=== PATIENT | female | born 1995 | race Caucasian/White ===

== ENCOUNTER 2021-11-11 09:33 | Inpatient (IN) | payer MEDICARE, MEDICAID ==
[~2021-11-11] VITALS: Ht 167.6 cm; Wt 74.8 kg
[2021-11-11 10:29] LABS: BASOPHILS % (AUTO) 0.3 % (0.0-2.0); EOSINOPHILS % (AUTO) 0.1 % (1.0-6.0); HEMATOCRIT 37.5 % (36-46); HEMOGLOBIN 12.9 g/dL (12.0-16.0); LYMPHOCYTES # (AUTO) 1.3 K/uL (1.0-4.8); LYMPHOCYTES % (AUTO) 19.2 % (22.0-44.0); MEAN CORPUSCULAR HEMOGLOBIN 30.2 pg (26.0-34.0); MEAN CORPUSCULAR HGB CONC 34.4 G/dL (31.0-37.0); MEAN CORPUSCULAR VOLUME 88 fL (80-100); MONOCYTES # (AUTO) 0.5 K/uL (0.1-1.0); MONOCYTES % (AUTO) 7.7 % (2.0-9.0); NEUTROPHILS # (AUTO) 5.1 K/uL (1.8-7.7); NEUTROPHILS % (AUTO) 72.7 % (40.0-70.0); PLATELET COUNT (AUTO) 264 K/uL (150-450); RED BLOOD CELL COUNT(AUTO) 4.27 MIL/uL (4.00-5.20); RED CELL DISTRIBUTION WIDTH 13.5 % (11.5-14.5)
[2021-11-11 11:01] LABS: ANION GAP 7 mmol/L (8-16); CALCIUM, TOTAL 9.2 mg/dL (8.8-10.5); CARBON DIOXIDE 26 mmol/L (22-29); CHLORIDE 103 mmol/L (98-107); CREATININE 0.77 mg/dL (0.60-1.30); GLUCOSE,RANDOM 118 mg/dL (70-110); POTASSIUM 3.5 mmol/L (3.5-5.1); SODIUM SERUM 136 mmol/L (136-145); UREA NITROGEN, BLOOD 10 mg/dL (7-18)
[2021-11-11 11:04] LABS: GLOMERULAR FILTR. RATE CALC > 60 mL/min (>60)
[2021-11-11 11:07] LABS: ALANINE AMINOTRANSFERASE 23 U/L (12-78); ALBUMIN 4.1 g/dL (3.4-5.0); ALKALINE PHOSPHATASE 54 U/L (46-116); ASPARTATE AMINOTRANSFERASE 17 U/L (15-37); BILIRUBIN,TOTAL 0.4 mg/dL (0.1-1.0); TOTAL PROTEIN, SERUM 7.5 g/dL (6.4-8.2)
[2021-11-11 11:48] LABS: APPEARANCE,URINE CLEAR (CLEAR); BILIRUBIN,URINE NEGATIVE (NEGATIVE); GLUCOSE, URINE (UA) NEGATIVE (NEGATIVE); LEUKOCYTE ESTERASE ,URINE SMALL (NEGATIVE); NITRATE,URINE NEGATIVE (NEGATIVE); OCCULT BLOOD,URINE NEGATIVE (NEGATIVE); PROTEIN,URINE NEGATIVE (NEGATIVE); SPECIFIC GRAVITIY, URINE 1.011 (1.003-1.030); UROBILINOGEN,URINE <=1.0 mg/dL (<=1.0)
[2021-11-11 11:57] LABS: BACTERIA,URINE None Seen /HPF (None Seen); RBC,URINE None Seen /HPF (0-2)
[2021-11-11 11:58] LABS: SQUAMOUS EPITHELIAL CELL,UR Few /LPF (None Seen); YEAST,URINE None Seen /HPF (None Seen)
[2021-11-11 12:35] LABS: AMPHET/METH SCREEN,URINE NEGATIVE (NEGATIVE); BARBITURATE SCREEN, URINE NEGATIVE (NEGATIVE); BENZODIAZEPINES SCREEN,URINE NEGATIVE (NEGATIVE); CANNABINOID SCREEN,URINE POSITIVE (NEGATIVE); COCAINE SCREEN,URINE NEGATIVE (NEGATIVE); METHADONE SCREEN, URINE NEGATIVE (NEGATIVE); OPIATE SCREEN,URINE NEGATIVE (NEGATIVE); PHENCYCLIDINE SCREEN,URINE NEGATIVE (NEGATIVE)
[2021-11-11 12:40] LABS: COVID AG,FIA SOURCE NASAL SWAB
[2021-11-11 14:03] VITALS: BP 149/94
[2021-11-11 16:28] VITALS: BP 150/90
[2021-11-11] MEDS: LORazepam 2 MG TABLET PO PRN (17:30)
[2021-11-11] MEDS: ZOLPIDEM TARTRATE 10 MG TABLET PO PRN (20:48)
[2021-11-11] MEDS ORDERED: ONDANSETRON HCL 4 MG TABLET PO PRN (22:45)
[2021-11-12 00:55] VITALS: BP 163/98
[2021-11-12] MEDS: LORazepam 2 MG TABLET PO PRN ×2 (01:02→16:45)
[2021-11-12] MEDS ORDERED: MAG HYDROX/AL HYDROX/SIMETH ES 30 ML SUSPENSION UDCUP PO PRN (07:45)
[2021-11-12] MEDS ORDERED: CloNIDine HCL 0.1 MG TABLET PO PRN (07:45)
[2021-11-12] MEDS ORDERED: PETROLATUM,WHITE 28 GM JELLY TP PRN (07:45)
[2021-11-12] MEDS ORDERED: GuaiFENesin/D-METHORPHAN [SUGAR-FREE] 200-20MG/10 ML SYRUP UDCUP PO PRN (07:45)
[2021-11-12] MEDS ORDERED: IBUPROFEN 400 MG TABLET PO PRN (07:45)
[2021-11-12] MEDS ORDERED: MAGNESIUM HYDROXIDE SUSPENSION 30 ML UDCUP PO PRN (07:45)
[2021-11-12] MEDS ORDERED: ACETAMINOPHEN 325 MG TABLET PO PRN (07:45)
[2021-11-12] MEDS ORDERED: NICOTINE 14 MG/24 HOUR PATCH TD PRN (07:45)
[2021-11-12] MEDS ORDERED: LOPERAMIDE HCL 2 MG CAPSULE PO PRN (07:45)
[2021-11-12] MEDS ORDERED: ALBUTEROL SULFATE HFA 90 MCG/PUFF 8 GM INHALER IH PRN (07:45)
[2021-11-12 08:06] LABS: H. PYLORI ANTIBODY IGG 0.16 (0.00-0.79)
[2021-11-12 09:05] VITALS: BP 148/83
[2021-11-12] MEDS: FINASTERIDE 5 MG TABLET PO SCH (12:31)
[2021-11-12] MEDS: ESTRADIOL 1 MG TABLET PO SCH (12:34)
[2021-11-12 16:07] VITALS: BP 143/81
[2021-11-12] MEDS: PROGESTERONE, MICRONIZED 100 MG CAPSULE PO SCH (20:30)
[2021-11-12] MEDS: OLANZapine 2.5 MG TABLET PO SCH (20:30)
[2021-11-12] MEDS: PRAZOSIN HCL 5 MG CAPSULE PO SCH (20:30)
[2021-11-12] MEDS: ZOLPIDEM TARTRATE 10 MG TABLET PO PRN (21:02)
[2021-11-13] VITALS (8 sets, daily range): BP systolic 145–156; BP diastolic 74–116
[2021-11-13] MEDS: LORazepam 2 MG TABLET PO PRN ×4 (02:42→23:54)
[2021-11-13] MEDS: ESTRADIOL 1 MG TABLET PO SCH (09:19)
[2021-11-13] MEDS: FINASTERIDE 5 MG TABLET PO SCH (09:19)
[2021-11-13] MEDS: ONDANSETRON HCL 4 MG TABLET PO PRN ×2 (09:20→17:30)
[2021-11-13] MEDS: DOCUSATE SODIUM 100 MG CAPSULE PO PRN ×2 (11:56→20:28)
[2021-11-13] MEDS: PRAZOSIN HCL 5 MG CAPSULE PO SCH (20:14)
[2021-11-13] MEDS: OLANZapine 2.5 MG TABLET PO SCH (20:14)
[2021-11-13] MEDS: PROGESTERONE, MICRONIZED 100 MG CAPSULE PO SCH (20:17)
[2021-11-13] MEDS: ZOLPIDEM TARTRATE 10 MG TABLET PO PRN (20:34)
[2021-11-14] VITALS: BP 127/76
[2021-11-14] MEDS: FINASTERIDE 5 MG TABLET PO SCH (08:24)
[2021-11-14] MEDS: ESTRADIOL 1 MG TABLET PO SCH (08:24)
[2021-11-14] MEDS: LORazepam 2 MG TABLET PO PRN ×4 (08:24→20:47)
[2021-11-14 10:17] VITALS: BP 136/83
[2021-11-14] MEDS: ONDANSETRON HCL 4 MG TABLET PO PRN ×2 (10:54→18:57)
[2021-11-14 13:07] LABS: H. PYLORI ANTIBODY IGM <9.0 units (0.0-8.9)
[2021-11-14 16:10] VITALS: BP 148/98
[2021-11-14] MEDS: PRAZOSIN HCL 5 MG CAPSULE PO SCH (20:46)
[2021-11-14] MEDS: PROGESTERONE, MICRONIZED 100 MG CAPSULE PO SCH (20:46)
[2021-11-14] MEDS: OLANZapine 2.5 MG TABLET PO SCH (20:47)
[2021-11-14] MEDS: ZOLPIDEM TARTRATE 10 MG TABLET PO PRN (21:01)
[2021-11-14 21:06] LABS: H. PYLORI ANTIBODY IGA <9.0 units (0.0-8.9)
[2021-11-15] MEDS: FINASTERIDE 5 MG TABLET PO SCH (08:20)
[2021-11-15] MEDS: ESTRADIOL 1 MG TABLET PO SCH (08:20)
[2021-11-15 08:29] VITALS: BP 140/93
[2021-11-15] MEDS: LORazepam 2 MG TABLET PO PRN ×2 (13:01→20:29)
[2021-11-15 16:27] VITALS: BP 132/86
[2021-11-15] MEDS: PROGESTERONE, MICRONIZED 100 MG CAPSULE PO SCH (20:28)
[2021-11-15] MEDS: PRAZOSIN HCL 5 MG CAPSULE PO SCH (20:29)
[2021-11-15] MEDS: OLANZapine 2.5 MG TABLET PO SCH (20:29)
[2021-11-15 20:31] VITALS: BP 130/82
[2021-11-15] MEDS: ZOLPIDEM TARTRATE 10 MG TABLET PO PRN (20:52)
[2021-11-16] MEDS: LORazepam 2 MG TABLET PO PRN ×3 (02:14→19:44)
[2021-11-16] MEDS: ONDANSETRON HCL 4 MG TABLET PO PRN (02:26)
[2021-11-16 08:18] VITALS: BP 145/86
[2021-11-16] MEDS: ESTRADIOL 1 MG TABLET PO SCH (08:47)
[2021-11-16] MEDS: FINASTERIDE 5 MG TABLET PO SCH (08:48)
[2021-11-16] MEDS: HALOPERIDOL 5 MG TABLET PO PRN (08:50)
[2021-11-16 16:12] VITALS: BP 150/94
[2021-11-16] MEDS: PROGESTERONE, MICRONIZED 100 MG CAPSULE PO SCH (20:08)
[2021-11-16] MEDS: OLANZapine 2.5 MG TABLET PO SCH (20:08)
[2021-11-16] MEDS: PRAZOSIN HCL 5 MG CAPSULE PO SCH (20:08)
[2021-11-16] MEDS: MELATONIN 3 MG TABLET PO SCH (20:08)
[2021-11-16 20:55] VITALS: BP 141/89
[2021-11-16] MEDS: ZOLPIDEM TARTRATE 10 MG TABLET PO PRN (21:48)
[2021-11-17 08:19] VITALS: BP 144/87
[2021-11-17] MEDS: ESTRADIOL 1 MG TABLET PO SCH (09:04)
[2021-11-17] MEDS: LORazepam 2 MG TABLET PO PRN ×2 (09:04→15:32)
[2021-11-17] MEDS: HALOPERIDOL 5 MG TABLET PO PRN (09:04)
[2021-11-17] MEDS: FINASTERIDE 5 MG TABLET PO SCH (09:04)
[2021-11-17 16:35] VITALS: BP 143/87
[2021-11-17 20:31] VITALS: BP 145/88
[2021-11-17] MEDS: PRAZOSIN HCL 5 MG CAPSULE PO SCH (20:57)
[2021-11-17] MEDS: OLANZapine 2.5 MG TABLET PO SCH (20:57)
[2021-11-17] MEDS: MELATONIN 3 MG TABLET PO SCH (20:58)
[2021-11-17] MEDS: PROGESTERONE, MICRONIZED 100 MG CAPSULE PO SCH (20:58)
[2021-11-17] MEDS: ZOLPIDEM TARTRATE 10 MG TABLET PO PRN (21:34)
[2021-11-18] MEDS: LORazepam 2 MG TABLET PO PRN ×3 (04:04→19:24)
[2021-11-18 08:30] VITALS: BP 126/85
[2021-11-18] MEDS: FINASTERIDE 5 MG TABLET PO SCH (08:49)
[2021-11-18] MEDS: ESTRADIOL 1 MG TABLET PO SCH (08:50)
[2021-11-18] MEDS: HALOPERIDOL 5 MG TABLET PO PRN (13:13)
[2021-11-18 16:38] VITALS: BP 130/86
[2021-11-18 20:24] VITALS: BP 127/84
[2021-11-18] MEDS: PROGESTERONE, MICRONIZED 100 MG CAPSULE PO SCH (21:00)
[2021-11-18] MEDS: OLANZapine 2.5 MG TABLET PO SCH (21:35)
[2021-11-18] MEDS: PRAZOSIN HCL 5 MG CAPSULE PO SCH (21:35)
[2021-11-18] MEDS: MELATONIN 3 MG TABLET PO SCH (21:35)
[2021-11-19] MEDS: LORazepam 2 MG TABLET PO PRN ×2 (07:23→19:26)
[2021-11-19] MEDS: FINASTERIDE 5 MG TABLET PO SCH (08:22)
[2021-11-19] MEDS: ESTRADIOL 1 MG TABLET PO SCH (08:23)
[2021-11-19 08:53] VITALS: BP 150/88
[2021-11-19 10:55] LABS: COVID AG,FIA SOURCE NASOPHARYNGEAL
[2021-11-19 16:18] VITALS: BP 139/73
[2021-11-19] MEDS: PRAZOSIN HCL 5 MG CAPSULE PO SCH (20:12)
[2021-11-19] MEDS: MELATONIN 3 MG TABLET PO SCH (20:12)
[2021-11-19] MEDS: OLANZapine 2.5 MG TABLET PO SCH (20:12)
[2021-11-19] MEDS: PROGESTERONE, MICRONIZED 100 MG CAPSULE PO SCH (20:13)
[2021-11-19] MEDS: ZOLPIDEM TARTRATE 10 MG TABLET PO PRN (21:07)
[2021-11-20] MEDS: LORazepam 2 MG TABLET PO PRN ×4 (02:56→18:50)
[2021-11-20 04:22] VITALS: BP 134/74
[2021-11-20 08:11] VITALS: BP 138/75
[2021-11-20] MEDS: FINASTERIDE 5 MG TABLET PO SCH (08:13)
[2021-11-20] MEDS: ESTRADIOL 1 MG TABLET PO SCH (08:14)
[2021-11-20 16:02] VITALS: BP 134/85
[2021-11-20] MEDS: OLANZapine 2.5 MG TABLET PO SCH (20:08)
[2021-11-20] MEDS: PRAZOSIN HCL 5 MG CAPSULE PO SCH (20:08)
[2021-11-20] MEDS: MELATONIN 3 MG TABLET PO SCH (20:08)
[2021-11-20] MEDS: PROGESTERONE, MICRONIZED 100 MG CAPSULE PO SCH (20:11)
[2021-11-20] MEDS: ZOLPIDEM TARTRATE 10 MG TABLET PO PRN (21:18)
[2021-11-21] MEDS: HALOPERIDOL 5 MG TABLET PO PRN (07:32)
[2021-11-21] MEDS: FINASTERIDE 5 MG TABLET PO SCH (07:32)
[2021-11-21] MEDS: ESTRADIOL 1 MG TABLET PO SCH (07:32)
[2021-11-21] MEDS: LORazepam 2 MG TABLET PO PRN ×2 (07:32→15:54)
[2021-11-21 08:23] VITALS: BP 114/75
[2021-11-21 16:15] VITALS: BP 133/83
[2021-11-21] MEDS: OLANZapine 2.5 MG TABLET PO SCH (20:17)
[2021-11-21] MEDS: PROGESTERONE, MICRONIZED 100 MG CAPSULE PO SCH (20:17)
[2021-11-21] MEDS: PRAZOSIN HCL 5 MG CAPSULE PO SCH (20:17)
[2021-11-21] MEDS: MELATONIN 3 MG TABLET PO SCH (20:18)
[2021-11-21] MEDS: ZOLPIDEM TARTRATE 10 MG TABLET PO PRN (20:56)
[2021-11-22] MEDS: LORazepam 2 MG TABLET PO PRN ×2 (01:50→09:21)
[2021-11-22] MEDS: HALOPERIDOL 5 MG TABLET PO PRN ×2 (01:50→09:21)
[2021-11-22 08:24] VITALS: BP 128/77
[2021-11-22] MEDS: ESTRADIOL 1 MG TABLET PO SCH (09:06)
[2021-11-22] MEDS: FINASTERIDE 5 MG TABLET PO SCH (09:06)
[2021-11-22] MEDS ORDERED: OLAN2.5T29 PO (11:46)
[2021-11-22] MEDS ORDERED: PRAZ5 PO (11:46)
[2021-11-22] MEDS ORDERED: MELA3TAB89 PO (11:46)
== END 2021-11-22 14:40 | disposition home or self-care (01) | DRG 885 ==
LOC: EMS 09:36 → 3EI 12:54 → 3EX 19:59 → 3EC 11-13 15:45
PROVIDERS: ADMIT Psychiatry & Neurology Child & Adolescent Psychiatry; ATTEND Psychiatry & Neurology Child & Adolescent Psychiatry
DX: F33.2 Major depressive disorder, recurrent severe without psychotic features (principal); R45.851 Suicidal ideations; F10.10 Alcohol abuse, uncomplicated; Z20.822 Contact with and (suspected) exposure to COVID-19; K21.9 Gastro-esophageal reflux disease without esophagitis; R03.0 Elevated blood-pressure reading, without diagnosis of hypertension; F19.10 Other psychoactive substance abuse, uncomplicated; F12.10 Cannabis abuse, uncomplicated; Z91.52 Personal history of nonsuicidal self-harm; Z79.899 Other long term (current) drug therapy
CPT/HCPCS: 70450; 80053; 81001; 85025; 86677; 99285; G0378; G0480; Q0162; Q9967

== ENCOUNTER 2022-01-08 05:24 | Inpatient (IN) | payer MEDICARE, MEDICAID ==
[~2022-01-08] VITALS: Ht 165.1 cm; Wt 75.3 kg
[~2022-01-08 05:24] MED LIST: MELA3TAB89 PO; OLAN2.5T29 PO; PRAZ5 PO
[2022-01-08 06:44] LABS: BASOPHILS % (AUTO) 0.7 % (0.0-2.0); EOSINOPHILS % (AUTO) 0.6 % (1.0-6.0); HEMATOCRIT 36.9 % (36-46); HEMOGLOBIN 12.5 g/dL (12.0-16.0); LYMPHOCYTES # (AUTO) 2.6 K/uL (1.0-4.8); LYMPHOCYTES % (AUTO) 35.2 % (22.0-44.0); MEAN CORPUSCULAR VOLUME 88 fL (80-100); MONOCYTES # (AUTO) 0.6 K/uL (0.1-1.0); MONOCYTES % (AUTO) 7.5 % (2.0-9.0); NEUTROPHILS # (AUTO) 4.2 K/uL (1.8-7.7); PLATELET COUNT (AUTO) 263 K/uL (150-450); RED BLOOD CELL COUNT(AUTO) 4.18 MIL/uL (4.00-5.20); RED CELL DISTRIBUTION WIDTH 13.4 % (11.5-14.5)
[2022-01-08 06:52] LABS: ANION GAP 8 mmol/L (8-16); CARBON DIOXIDE 27 mmol/L (22-29); CHLORIDE 102 mmol/L (98-107); CREATININE 0.81 mg/dL (0.60-1.30); GLOMERULAR FILTR. RATE CALC > 60 mL/min (>60); GLUCOSE,RANDOM 106 mg/dL (70-110); POTASSIUM 3.5 mmol/L (3.5-5.1); SODIUM SERUM 137 mmol/L (136-145); UREA NITROGEN, BLOOD 16 mg/dL (7-18)
[2022-01-08 06:58] LABS: ALANINE AMINOTRANSFERASE 16 U/L (12-78); ALBUMIN 4.1 g/dL (3.4-5.0); ALKALINE PHOSPHATASE 57 U/L (46-116); ASPARTATE AMINOTRANSFERASE 17 U/L (15-37); BILIRUBIN,TOTAL 0.3 mg/dL (0.1-1.0); TOTAL PROTEIN, SERUM 7.4 g/dL (6.4-8.2)
[2022-01-08] MEDS ORDERED: LORazepam 2 MG TABLET PO PRN (07:15)
[2022-01-08] MEDS ORDERED: OLANZapine 5 MG RAPDIS TABLET PO PRN (07:15)
[2022-01-08] MEDS ORDERED: ZOLPIDEM TARTRATE 10 MG TABLET PO PRN (07:15)
[2022-01-08 09:29] LABS: COVID AG,FIA SOURCE NASAL SWAB
[2022-01-08 10:15] VITALS: BP 141/88
[2022-01-08 12:00] LABS: APPEARANCE,URINE CLEAR (CLEAR); BILIRUBIN,URINE NEGATIVE (NEGATIVE); GLUCOSE, URINE (UA) NEGATIVE (NEGATIVE); KETONES,URINE NEGATIVE (NEGATIVE); LEUKOCYTE ESTERASE ,URINE NEGATIVE (NEGATIVE); NITRATE,URINE NEGATIVE (NEGATIVE); OCCULT BLOOD,URINE NEGATIVE (NEGATIVE); PH,URINE 5.5 (5.0-8.0); PROTEIN,URINE TRACE mg/dL (NEGATIVE); SPECIFIC GRAVITIY, URINE 1.031 (1.003-1.030); UROBILINOGEN,URINE <=1.0 mg/dL (<=1.0)
[2022-01-08 12:05] LABS: AMPHET/METH SCREEN,URINE NEGATIVE (NEGATIVE); BARBITURATE SCREEN, URINE NEGATIVE (NEGATIVE); BENZODIAZEPINES SCREEN,URINE NEGATIVE (NEGATIVE); CANNABINOID SCREEN,URINE NEGATIVE (NEGATIVE); COCAINE SCREEN,URINE NEGATIVE (NEGATIVE); METHADONE SCREEN, URINE NEGATIVE (NEGATIVE); OPIATE SCREEN,URINE NEGATIVE (NEGATIVE)
[2022-01-08 12:07] LABS: PHENCYCLIDINE SCREEN,URINE NEGATIVE (NEGATIVE)
[2022-01-08 12:22] LABS: BACTERIA,URINE None Seen /HPF (None Seen); RBC,URINE None Seen /HPF (0-2); SQUAMOUS EPITHELIAL CELL,UR Few /LPF (None Seen); WBC,URINE None Seen /HPF (0-5)
[2022-01-08 16:43] VITALS: BP 151/89
[2022-01-08] MEDS ORDERED: TEMAZEPAM 15 MG CAPSULE PO PRN (16:45)
[2022-01-08] MEDS ORDERED: ChlorproMAZINE HCL 100 MG TABLET PO PRN (16:45)
[2022-01-08] MEDS: HydrOXYzine PAMOATE 25 MG CAPSULE PO SCH (17:28)
[2022-01-08] MEDS: LORazepam 1 MG TABLET PO PRN (19:46)
[2022-01-08] MEDS: PROGESTERONE, MICRONIZED 100 MG CAPSULE PO SCH (20:24)
[2022-01-08] MEDS: MAGNESIUM CHLORIDE 64 MG DR TABLET PO SCH (20:43)
[2022-01-08] MEDS: PRAZOSIN HCL 5 MG CAPSULE PO SCH (20:43)
[2022-01-09] MEDS: FINASTERIDE 5 MG TABLET PO SCH (08:48)
[2022-01-09] MEDS: PRAZOSIN HCL 1 MG CAPSULE PO SCH (08:48)
[2022-01-09] MEDS: HydrOXYzine PAMOATE 25 MG CAPSULE PO SCH ×3 (08:48→21:23)
[2022-01-09] MEDS: ESTRADIOL 1 MG TABLET PO SCH (08:49)
[2022-01-09] MEDS ORDERED: OMEGA-3/DHA/EPA/FISH OIL 1,000 MG CAPSULE PO SCH (09:00)
[2022-01-09 09:17] VITALS: BP 137/89
[2022-01-09] MEDS ORDERED: QUEtiapine FUMARATE 100 MG TABLET PO PRN (09:45)
[2022-01-09] MEDS ORDERED: ZOLPIDEM TARTRATE 10 MG TABLET PO PRN (09:45)
[2022-01-09] MEDS ORDERED: LOPERAMIDE HCL 2 MG CAPSULE PO PRN (09:45)
[2022-01-09] MEDS ORDERED: TUBERCULIN, PURIFIED PROTEIN DERIVATIVE 5 TU/0.1 ML SYRINGE ID ONE (09:45)
[2022-01-09] MEDS ORDERED: MAGNESIUM HYDROXIDE SUSPENSION 30 ML UDCUP PO PRN (09:45)
[2022-01-09] MEDS ORDERED: ACETAMINOPHEN 325 MG TABLET PO PRN (09:45)
[2022-01-09] MEDS ORDERED: MAG HYDROX/AL HYDROX/SIMETH ES 30 ML SUSPENSION UDCUP PO PRN (09:45)
[2022-01-09] MEDS ORDERED: GuaiFENesin/D-METHORPHAN [SUGAR-FREE] 200-20MG/10 ML SYRUP UDCUP PO PRN (09:45)
[2022-01-09] MEDS ORDERED: HydrOXYzine PAMOATE 50 MG CAPSULE PO PRN (09:45)
[2022-01-09] MEDS ORDERED: PROMETHAZINE HCL 25 MG TABLET PO PRN (09:45)
[2022-01-09] MEDS ORDERED: OLANZapine 5 MG RAPDIS TABLET PO PRN (10:00)
[2022-01-09] MEDS ORDERED: ChlorproMAZINE HCL 50 MG TABLET PO PRN (14:45)
[2022-01-09 16:03] VITALS: BP 153/89
[2022-01-09] MEDS: THIAMINE 100 MG TABLET PO SCH (16:09)
[2022-01-09] MEDS: LORazepam 1 MG TABLET PO PRN (18:12)
[2022-01-09] MEDS: PROGESTERONE, MICRONIZED 100 MG CAPSULE PO SCH (20:30)
[2022-01-09] MEDS ORDERED: OLANZapine 5 MG RAPDIS TABLET PO SCH ×2 (21:00)
[2022-01-09] MEDS ORDERED: ESZOPICLONE 3 MG TABLET PO SCH (21:00)
[2022-01-09] MEDS: ChlorproMAZINE HCL 100 MG TABLET PO SCH (21:22)
[2022-01-09] MEDS: PRAZOSIN HCL 5 MG CAPSULE PO SCH (21:22)
[2022-01-09] MEDS: MELATONIN 5 MG TABLET PO SCH (21:23)
[2022-01-09] MEDS: MAGNESIUM CHLORIDE 64 MG DR TABLET PO SCH (21:23)
[2022-01-09] MEDS: ESZOPICLONE 3 MG TABLET PO PRN (22:30)
[2022-01-10 08:06] LABS: HEMOGLOBIN A1C 5.6 % (3.8-5.6)
[2022-01-10 08:14] LABS: CHOL/HDL RATIO 3.5 (3.9-5.7); FREE T4 (FREE THYROXINE) 1.3 ng/dL (0.76-1.46); THYROID STIMULATING HORMONE 1.3 uIU/mL (0.36-3.74)
[2022-01-10] MEDS: FOLIC ACID 1 MG TABLET PO SCH (08:28)
[2022-01-10] MEDS: ESTRADIOL 1 MG TABLET PO SCH (08:28)
[2022-01-10] MEDS: OMEGA-3/DHA/EPA/FISH OIL 1,000 MG CAPSULE PO SCH (08:28)
[2022-01-10] MEDS: FINASTERIDE 5 MG TABLET PO SCH (08:29)
[2022-01-10] MEDS: THIAMINE 100 MG TABLET PO SCH ×2 (08:29→16:16)
[2022-01-10] MEDS: NALTREXONE HCL 50 MG TABLET PO SCH (08:29)
[2022-01-10] MEDS: PRAZOSIN HCL 1 MG CAPSULE PO SCH (08:29)
[2022-01-10] MEDS: MULTIVITAMINS WITH MINERALS, THERAPEUTIC TABLET PO SCH (08:29)
[2022-01-10] MEDS: LORazepam 1 MG TABLET PO PRN (09:14)
[2022-01-10 09:52] VITALS: BP 144/82
[2022-01-10 17:03] VITALS: BP 135/76
[2022-01-10] MEDS ORDERED: CHLO100T42 PO (17:11)
[2022-01-10] MEDS ORDERED: CHLO25TA70 PO (17:11)
[2022-01-10] MEDS: PRAZOSIN HCL 5 MG CAPSULE PO SCH (20:23)
[2022-01-10] MEDS: ChlorproMAZINE HCL 100 MG TABLET PO SCH (20:23)
[2022-01-10] MEDS: MELATONIN 5 MG TABLET PO SCH (20:23)
[2022-01-10] MEDS: HydrOXYzine PAMOATE 25 MG CAPSULE PO SCH (20:23)
[2022-01-10] MEDS: PROGESTERONE, MICRONIZED 100 MG CAPSULE PO SCH (20:24)
[2022-01-10] MEDS: MAGNESIUM CHLORIDE 64 MG DR TABLET PO SCH (20:24)
[2022-01-10] MEDS: ESZOPICLONE 3 MG TABLET PO PRN (21:18)
[2022-01-11 05:45] VITALS: BP 149/98
[2022-01-11] MEDS: LORazepam 1 MG TABLET PO PRN (05:49)
[2022-01-11 05:54] VITALS: BP 155/91
[2022-01-11 08:00] VITALS: BP 164/93
[2022-01-11] MEDS: THIAMINE 100 MG TABLET PO SCH (08:36)
[2022-01-11] MEDS: ChlorproMAZINE HCL 25 MG TABLET PO SCH ×3 (08:36→12:30)
[2022-01-11] MEDS: OMEGA-3/DHA/EPA/FISH OIL 1,000 MG CAPSULE PO SCH (08:36)
[2022-01-11] MEDS: NALTREXONE HCL 50 MG TABLET PO SCH (08:36)
[2022-01-11] MEDS: MULTIVITAMINS WITH MINERALS, THERAPEUTIC TABLET PO SCH (08:37)
[2022-01-11] MEDS: FOLIC ACID 1 MG TABLET PO SCH (08:37)
[2022-01-11] MEDS: ESTRADIOL 1 MG TABLET PO SCH (08:37)
[2022-01-11] MEDS: FINASTERIDE 5 MG TABLET PO SCH (08:38)
[2022-01-11] MEDS: PRAZOSIN HCL 1 MG CAPSULE PO SCH (08:39)
[2022-01-11] MEDS ORDERED: ESTR-95 PO (10:10)
[2022-01-11] MEDS ORDERED: MAGN64TA7 PO (10:10)
[2022-01-11] MEDS ORDERED: PRAZ1 PO ×3 (10:10→15:37)
[2022-01-11] MEDS ORDERED: FINA-27 PO ×2 (10:10→15:37)
[2022-01-11] MEDS ORDERED: PRAZ5 PO (10:10)
[2022-01-11] MEDS ORDERED: PROG100C24 PO ×2 (10:10→15:37)
== END 2022-01-11 14:40 | disposition home or self-care (01) | DRG 885 ==
LOC: EMS 05:29 → 3EX 10:11
PROVIDERS: ADMIT Psychiatry & Neurology Psychiatry; ATTEND Psychiatry & Neurology Psychiatry
DX: F33.2 Major depressive disorder, recurrent severe without psychotic features (principal); F43.10 Post-traumatic stress disorder, unspecified; K21.9 Gastro-esophageal reflux disease without esophagitis; F90.9 Attention-deficit hyperactivity disorder, unspecified type; Z20.822 Contact with and (suspected) exposure to COVID-19; S41.112A Laceration without foreign body of left upper arm, initial encounter; X78.1XXA Intentional self-harm by knife, initial encounter; F12.90 Cannabis use, unspecified, uncomplicated; Y93.89 Activity, other specified; Y92.098 Other place in other non-institutional residence as the place of occurrence of the external cause; Y99.8 Other external cause status; Z65.3 Problems related to other legal circumstances; Z55.9 Problems related to education and literacy, unspecified; Z59.9 Problem related to housing and economic circumstances, unspecified; Z63.9 Problem related to primary support group, unspecified; Z79.890 Hormone replacement therapy; Z91.19 Patient's noncompliance with other medical treatment and regimen; Z79.899 Other long term (current) drug therapy
CPT/HCPCS: 80053; 80061; 81001; 83036; 84439; 84443; 85025; 86592; 99285; G0378; G0480; Q9967

== ENCOUNTER 2022-03-18 09:37 | Inpatient (IN) | payer MEDICARE, MEDICAID ==
[~2022-03-18] VITALS: Ht 165.1 cm; Wt 73.5 kg
[~2022-03-18 09:37] MED LIST changes: +CHLO100T42 PO; +CHLO25TA70 PO; +ESTR-95 PO; +FINA-27 PO; +MAGN64TA7 PO; -MELA3TAB89 PO; -OLAN2.5T29 PO; +PRAZ1 PO; +PROG100C24 PO
[2022-03-18 10:28] LABS: COVID AG,FIA SOURCE NASOPHARYNGEAL
[2022-03-18 10:30] LABS: BASOPHILS % (AUTO) 0.9 % (0.0-2.0); EOSINOPHILS % (AUTO) 1.3 % (1.0-6.0); HEMATOCRIT 39.3 % (36-46); HEMOGLOBIN 13.4 g/dL (12.0-16.0); LYMPHOCYTES # (AUTO) 2.1 K/uL (1.0-4.8); LYMPHOCYTES % (AUTO) 43.1 % (22.0-44.0); MEAN CORPUSCULAR HEMOGLOBIN 30.4 pg (26.0-34.0); MEAN CORPUSCULAR HGB CONC 34.2 G/dL (31.0-37.0); MEAN CORPUSCULAR VOLUME 89 fL (80-100); MONOCYTES # (AUTO) 0.8 K/uL (0.1-1.0); MONOCYTES % (AUTO) 15.7 % (2.0-9.0); NEUTROPHILS # (AUTO) 1.9 K/uL (1.8-7.7); PLATELET COUNT (AUTO) 267 K/uL (150-450); RED BLOOD CELL COUNT(AUTO) 4.42 MIL/uL (4.00-5.20); RED CELL DISTRIBUTION WIDTH 13.6 % (11.5-14.5)
[2022-03-18 10:37] LABS: ANION GAP 5 mmol/L (8-16); CALCIUM, TOTAL 9.5 mg/dL (8.8-10.5); CARBON DIOXIDE 29 mmol/L (22-29); CHLORIDE 101 mmol/L (98-107); GLUCOSE,RANDOM 99 mg/dL (70-110); POTASSIUM 3.7 mmol/L (3.5-5.1); SODIUM SERUM 135 mmol/L (136-145); UREA NITROGEN, BLOOD 9 mg/dL (7-18)
[2022-03-18 10:40] LABS: GLOMERULAR FILTR. RATE CALC > 60 mL/min (>60)
[2022-03-18 10:48] LABS: ALANINE AMINOTRANSFERASE 19 U/L (12-78); ALBUMIN 4.3 g/dL (3.4-5.0); ALKALINE PHOSPHATASE 66 U/L (46-116); ASPARTATE AMINOTRANSFERASE 20 U/L (15-37); BILIRUBIN,TOTAL 0.3 mg/dL (0.1-1.0); HCG,QUANTITATIVE < 1 mIU/mL (0-6); TOTAL PROTEIN, SERUM 8.1 g/dL (6.4-8.2)
[2022-03-18] MEDS ORDERED: ZOLPIDEM TARTRATE 10 MG TABLET PO PRN (12:15)
[2022-03-18] MEDS ORDERED: OLANZapine 5 MG RAPDIS TABLET PO PRN (12:15)
[2022-03-18 15:59] LABS: AMPHET/METH SCREEN,URINE NEGATIVE (NEGATIVE); BARBITURATE SCREEN, URINE NEGATIVE (NEGATIVE); BENZODIAZEPINES SCREEN,URINE NEGATIVE (NEGATIVE); CANNABINOID SCREEN,URINE POSITIVE (NEGATIVE); COCAINE SCREEN,URINE NEGATIVE (NEGATIVE); METHADONE SCREEN, URINE NEGATIVE (NEGATIVE); OPIATE SCREEN,URINE NEGATIVE (NEGATIVE)
[2022-03-18 16:04] LABS: PHENCYCLIDINE SCREEN,URINE NEGATIVE (NEGATIVE)
[2022-03-18] MEDS: LORazepam 2 MG TABLET PO PRN ×2 (16:09→20:25)
[2022-03-18 16:32] VITALS: BP 130/94
[2022-03-18] MEDS: ChlorproMAZINE HCL 100 MG TABLET PO SCH (21:31)
[2022-03-18] MEDS: HydrOXYzine PAMOATE 25 MG CAPSULE PO SCH (21:31)
[2022-03-18] MEDS: MELATONIN 5 MG TABLET PO SCH (21:32)
[2022-03-19 02:08] VITALS: BP 122/78
[2022-03-19] MEDS: LORazepam 2 MG TABLET PO PRN (04:45)
[2022-03-19 08:30] VITALS: BP 115/69
[2022-03-19] MEDS ORDERED: HALOPERIDOL LACTATE 5 MG/ML VIAL IM ONE (08:30)
[2022-03-19] MEDS ORDERED: DiphenhydrAMINE HCL 50 MG/ML VIAL IM ONE (08:30)
[2022-03-19] MEDS ORDERED: LORazepam 2 MG/ML VIAL IM ONE (08:30)
[2022-03-19] MEDS ORDERED: DiphenhydrAMINE HCL 50 MG/ML VIAL ONE (08:31)
[2022-03-19] MEDS ORDERED: HALOPERIDOL LACTATE 5 MG/ML VIAL ONE ×2 (08:31→08:32)
[2022-03-19] MEDS: NALTREXONE HCL 50 MG TABLET PO SCH (09:00)
[2022-03-19] MEDS: ChlorproMAZINE HCL 25 MG TABLET PO SCH ×3 (09:40→19:43)
[2022-03-19] MEDS: OLANZapine 5 MG TABLET PO SCH (09:40)
[2022-03-19] MEDS: ESTRADIOL 1 MG TABLET PO SCH (19:50)
[2022-03-19 20:38] VITALS: BP 114/68
[2022-03-19] MEDS: ChlorproMAZINE HCL 100 MG TABLET PO SCH (21:22)
[2022-03-19] MEDS: PROGESTERONE, MICRONIZED 100 MG CAPSULE PO SCH (21:23)
[2022-03-19] MEDS: PRAZOSIN HCL 5 MG CAPSULE PO SCH (21:33)
[2022-03-19] MEDS: HydrOXYzine PAMOATE 25 MG CAPSULE PO SCH (21:33)
[2022-03-19] MEDS: MELATONIN 5 MG TABLET PO SCH (21:34)
[2022-03-20] MEDS: LORazepam 2 MG TABLET PO PRN ×2 (06:56→19:36)
[2022-03-20] MEDS: ESTRADIOL 1 MG TABLET PO SCH (08:39)
[2022-03-20] MEDS: OLANZapine 5 MG TABLET PO SCH ×3 (08:39→09:33)
[2022-03-20] MEDS: PRAZOSIN HCL 1 MG CAPSULE PO SCH (08:40)
[2022-03-20] MEDS: NALTREXONE HCL 50 MG TABLET PO SCH ×2 (08:40→09:00)
[2022-03-20] MEDS: ChlorproMAZINE HCL 25 MG TABLET PO SCH ×2 (09:00→09:02)
[2022-03-20 09:38] VITALS: BP 96/60
[2022-03-20] MEDS ORDERED: PROMETHAZINE HCL 25 MG TABLET PO PRN (09:45)
[2022-03-20] MEDS ORDERED: MAG HYDROX/AL HYDROX/SIMETH ES 30 ML SUSPENSION UDCUP PO PRN (09:45)
[2022-03-20] MEDS ORDERED: LOPERAMIDE HCL 2 MG CAPSULE PO PRN (09:45)
[2022-03-20] MEDS ORDERED: TUBERCULIN, PURIFIED PROTEIN DERIVATIVE 5 TU/0.1 ML SYRINGE ID ONE (09:45)
[2022-03-20] MEDS ORDERED: GuaiFENesin/D-METHORPHAN [SUGAR-FREE] 200-20MG/10 ML SYRUP UDCUP PO PRN (09:45)
[2022-03-20] MEDS ORDERED: ACETAMINOPHEN 325 MG TABLET PO PRN (09:45)
[2022-03-20] MEDS ORDERED: HydrOXYzine PAMOATE 50 MG CAPSULE PO PRN (09:45)
[2022-03-20] MEDS ORDERED: MAGNESIUM HYDROXIDE SUSPENSION 30 ML UDCUP PO PRN (09:45)
[2022-03-20] MEDS ORDERED: AMPHETAMINE/DEXTROAMPHETAMINE 10 MG TABLET PO SCH (12:00)
[2022-03-20] MEDS: THIAMINE 100 MG TABLET PO SCH (16:15)
[2022-03-20 20:30] VITALS: BP 117/81
[2022-03-20] MEDS ORDERED: ESZOPICLONE 3 MG TABLET PO SCH (21:00)
[2022-03-20] MEDS ORDERED: OLANZapine 7.5 MG TABLET PO SCH (21:00)
[2022-03-20] MEDS ORDERED: OLANZapine 5 MG TABLET PO SCH (21:00)
[2022-03-20] MEDS: PROGESTERONE, MICRONIZED 100 MG CAPSULE PO SCH (21:04)
[2022-03-20] MEDS: MELATONIN 5 MG TABLET PO SCH (21:07)
[2022-03-20] MEDS: HydrOXYzine PAMOATE 25 MG CAPSULE PO SCH (21:07)
[2022-03-20] MEDS: PRAZOSIN HCL 5 MG CAPSULE PO SCH (21:07)
[2022-03-20] MEDS ORDERED: MELA5TAB40 PO (21:27)
[2022-03-20] MEDS ORDERED: PRAZ5 PO (21:27)
[2022-03-20] MEDS ORDERED: PRAZ1 PO (21:27)
[2022-03-20] MEDS ORDERED: ESZO3 PO (21:27)
[2022-03-20] MEDS ORDERED: NALT50TA PO (21:27)
[2022-03-20] MEDS ORDERED: HYDR-4808 PO (21:27)
[2022-03-20] MEDS ORDERED: OLAN7.5T22 PO (21:27)
[2022-03-21] MEDS: AMPHETAMINE/DEXTROAMPHETAMINE 10 MG TABLET PO SCH ×2 (07:00→11:26)
[2022-03-21 07:29] LABS: HEMOGLOBIN A1C 5.3 % (3.8-5.6)
[2022-03-21 07:43] LABS: CHOL/HDL RATIO 4.5 (3.9-5.7); FREE T4 (FREE THYROXINE) 1.42 ng/dL (0.76-1.46); THYROID STIMULATING HORMONE 1.31 uIU/mL (0.36-3.74)
[2022-03-21 08:10] VITALS: BP 110/72
[2022-03-21] MEDS ORDERED: MULTIVITAMINS WITH MINERALS, THERAPEUTIC TABLET PO SCH (09:00)
[2022-03-21] MEDS ORDERED: FOLIC ACID 1 MG TABLET PO SCH (09:00)
[2022-03-21] MEDS: NALTREXONE HCL 50 MG TABLET PO SCH (09:18)
[2022-03-21] MEDS: ESTRADIOL 1 MG TABLET PO SCH (09:19)
[2022-03-21] MEDS: PRAZOSIN HCL 1 MG CAPSULE PO SCH (09:22)
[2022-03-21] MEDS: THIAMINE 100 MG TABLET PO SCH (09:23)
== END 2022-03-21 13:10 | disposition home or self-care (01) | DRG 885 ==
LOC: EMS 09:51 → B2X 12:37
PROVIDERS: ADMIT Psychiatry & Neurology Psychiatry; ATTEND Psychiatry & Neurology Psychiatry
DX: F31.30 Bipolar disorder, current episode depressed, mild or moderate severity, unspecified (principal); R45.851 Suicidal ideations; E87.1 Hypo-osmolality and hyponatremia; Z20.822 Contact with and (suspected) exposure to COVID-19; K21.9 Gastro-esophageal reflux disease without esophagitis; F90.9 Attention-deficit hyperactivity disorder, unspecified type; F60.3 Borderline personality disorder; F17.200 Nicotine dependence, unspecified, uncomplicated; F43.10 Post-traumatic stress disorder, unspecified; E78.5 Hyperlipidemia, unspecified; Z65.3 Problems related to other legal circumstances; Z59.9 Problem related to housing and economic circumstances, unspecified; Z63.8 Other specified problems related to primary support group; Z55.9 Problems related to education and literacy, unspecified; Z91.14 Patient's other noncompliance with medication regimen; Z91.199 Patient's noncompliance with other medical treatment and regimen due to unspecified reason; Z91.52 Personal history of nonsuicidal self-harm; Z79.899 Other long term (current) drug therapy
CPT/HCPCS: 80053; 80061; 83036; 84439; 84443; 84702; 85025; 86592; 99285; G0480; J1200; J1630; J2060; Q9967

== ENCOUNTER 2022-05-22 12:26 | Inpatient (IN) | payer MEDICARE, MEDICAID ==
[~2022-05-22] VITALS: Ht 165.1 cm; Wt 71.9 kg
[~2022-05-22 12:26] MED LIST changes: -CHLO100T42 PO; -CHLO25TA70 PO; -ESTR-95 PO; +ESZO3 PO; -FINA-27 PO; +HYDR-4808 PO; -MAGN64TA7 PO; +MELA5TAB40 PO; +NALT50TA PO; +OLAN7.5T22 PO; -PROG100C24 PO
[2022-05-22 13:28] LABS: BASOPHILS % (AUTO) 0.3 % (0.0-2.0); EOSINOPHILS % (AUTO) 0.6 % (1.0-6.0); HEMATOCRIT 35.5 % (36-46); HEMOGLOBIN 11.9 g/dL (12.0-16.0); LYMPHOCYTES # (AUTO) 1.6 K/uL (1.0-4.8); LYMPHOCYTES % (AUTO) 16.8 % (22.0-44.0); MEAN CORPUSCULAR HEMOGLOBIN 30.2 pg (26.0-34.0); MEAN CORPUSCULAR HGB CONC 33.6 G/dL (31.0-37.0); MEAN CORPUSCULAR VOLUME 90 fL (80-100); MONOCYTES # (AUTO) 0.5 K/uL (0.1-1.0); MONOCYTES % (AUTO) 5.3 % (2.0-9.0); NEUTROPHILS # (AUTO) 7.2 K/uL (1.8-7.7); PLATELET COUNT (AUTO) 273 K/uL (150-450); RED BLOOD CELL COUNT(AUTO) 3.96 MIL/uL (4.00-5.20); RED CELL DISTRIBUTION WIDTH 13.8 % (11.5-14.5)
[2022-05-22 13:44] LABS: ALANINE AMINOTRANSFERASE 16 U/L (12-78); ALBUMIN 4.1 g/dL (3.4-5.0); ALKALINE PHOSPHATASE 68 U/L (46-116); ANION GAP 6 mmol/L (8-16); ASPARTATE AMINOTRANSFERASE 21 U/L (15-37); BILIRUBIN,TOTAL 0.3 mg/dL (0.1-1.0); CALCIUM, TOTAL 8.6 mg/dL (8.8-10.5); CARBON DIOXIDE 27 mmol/L (22-29); CHLORIDE 103 mmol/L (98-107); GLUCOSE,RANDOM 99 mg/dL (70-110); POTASSIUM 3.7 mmol/L (3.5-5.1); SODIUM SERUM 136 mmol/L (136-145); TOTAL PROTEIN, SERUM 7.8 g/dL (6.4-8.2); UREA NITROGEN, BLOOD 6 mg/dL (7-18)
[2022-05-22 13:45] LABS: GLOMERULAR FILTR. RATE CALC > 60 mL/min (>60)
[2022-05-22] MEDS ORDERED: LORazepam 1 MG TABLET PO ONE ×2 (13:45→14:30)
[2022-05-22] MEDS ORDERED: OLANZapine 5 MG TABLET PO ONE (13:45)
[2022-05-22] MEDS ORDERED: HYDROGEN PEROXIDE 118 ML SOLUTION TP ONE (14:30)
[2022-05-22] MEDS ORDERED: BACITRACIN 0.9 GM PACKET OINTMENT TP ONE (14:30)
[2022-05-22] MEDS ORDERED: CEPHALEXIN MONOHYDRATE 500 MG CAPSULE PO ONE (14:30)
[2022-05-22] MEDS ORDERED: DiphenhydrAMINE HCL 25 MG CAPSULE PO ONE (14:30)
[2022-05-22] MEDS ORDERED: ZOLPIDEM TARTRATE 10 MG TABLET PO PRN (15:15)
[2022-05-22 17:02] LABS: COVID AG,FIA SOURCE NASOPHARYNGEAL
[2022-05-22] MEDS ORDERED: AmLODIPine BESYLATE 5 MG TABLET PO ONE (17:30)
[2022-05-22] MEDS ORDERED: GuaiFENesin/D-METHORPHAN [SUGAR-FREE] 200-20MG/10 ML SYRUP UDCUP PO PRN (21:45)
[2022-05-22] MEDS ORDERED: MAGNESIUM HYDROXIDE SUSPENSION 30 ML UDCUP PO PRN (21:45)
[2022-05-22] MEDS ORDERED: ACETAMINOPHEN 325 MG TABLET PO PRN (21:45)
[2022-05-22] MEDS ORDERED: LOPERAMIDE HCL 2 MG CAPSULE PO PRN (21:45)
[2022-05-22] MEDS ORDERED: MAG HYDROX/AL HYDROX/SIMETH ES 30 ML SUSPENSION UDCUP PO PRN (21:45)
[2022-05-22 23:30] VITALS: BP 130/85
[2022-05-22] MEDS: LORazepam 2 MG TABLET PO PRN (23:40)
[2022-05-23] MEDS: NALTREXONE HCL 50 MG TABLET PO SCH (10:03)
[2022-05-23] MEDS: THIAMINE 100 MG TABLET PO SCH ×2 (10:05→17:41)
[2022-05-23] MEDS: FOLIC ACID 1 MG TABLET PO SCH (10:05)
[2022-05-23] MEDS: OMEGA-3/DHA/EPA/FISH OIL 1,000 MG CAPSULE PO SCH (10:05)
[2022-05-23] MEDS: MULTIVITAMINS WITH MINERALS, THERAPEUTIC TABLET PO SCH (10:05)
[2022-05-23 10:11] VITALS: BP 144/86
[2022-05-23] MEDS: BACITRACIN 28 GM OINTMENT TP PRN (12:24)
[2022-05-23] MEDS: HydrOXYzine PAMOATE 50 MG CAPSULE PO PRN (12:24)
[2022-05-23] MEDS: LORazepam 2 MG TABLET PO PRN (12:24)
[2022-05-23] MEDS: PROMETHAZINE HCL 25 MG TABLET PO PRN (16:16)
[2022-05-23] MEDS: OLANZapine 5 MG RAPDIS TABLET PO PRN (17:41)
[2022-05-23] MEDS: HydrOXYzine PAMOATE 50 MG CAPSULE PO SCH (20:59)
[2022-05-23] MEDS: OLANZapine 10 MG RAPDIS TABLET PO SCH (21:00)
[2022-05-23] MEDS: MELATONIN 5 MG TABLET PO SCH (21:00)
[2022-05-23] MEDS: PRAZOSIN HCL 5 MG CAPSULE PO SCH (21:00)
[2022-05-23] MEDS ORDERED: OLANZapine 5 MG RAPDIS TABLET PO SCH (21:00)
[2022-05-23] MEDS ORDERED: ESZOPICLONE 2 MG TABLET PO SCH (21:00)
[2022-05-24 00:30] VITALS: BP 108/63
[2022-05-24] MEDS: LORazepam 2 MG TABLET PO PRN ×3 (02:40→18:07)
[2022-05-24 08:00] VITALS: BP 138/94
[2022-05-24] MEDS: NALTREXONE HCL 50 MG TABLET PO SCH (08:43)
[2022-05-24] MEDS: FOLIC ACID 1 MG TABLET PO SCH (08:43)
[2022-05-24] MEDS: MULTIVITAMINS WITH MINERALS, THERAPEUTIC TABLET PO SCH (08:43)
[2022-05-24] MEDS: BuPROPion HCL 75 MG TABLET PO SCH (08:43)
[2022-05-24] MEDS: OMEGA-3/DHA/EPA/FISH OIL 1,000 MG CAPSULE PO SCH (08:43)
[2022-05-24] MEDS: THIAMINE 100 MG TABLET PO SCH ×2 (08:44→16:01)
[2022-05-24] MEDS: PROMETHAZINE HCL 25 MG TABLET PO PRN (10:37)
[2022-05-24] MEDS: OLANZapine 5 MG RAPDIS TABLET PO PRN (14:14)
[2022-05-24] MEDS: HydrOXYzine PAMOATE 50 MG CAPSULE PO PRN (14:14)
[2022-05-24 18:03] VITALS: BP 159/91
[2022-05-24] MEDS: PRAZOSIN HCL 5 MG CAPSULE PO SCH (20:49)
[2022-05-24] MEDS: ESTRADIOL 1 MG TABLET PO SCH (20:49)
[2022-05-24] MEDS: FINASTERIDE 5 MG TABLET PO SCH (20:52)
[2022-05-24] MEDS: MELATONIN 5 MG TABLET PO SCH (20:52)
[2022-05-24] MEDS: PROGESTERONE, MICRONIZED 100 MG CAPSULE PO SCH (20:52)
[2022-05-24] MEDS: ESZOPICLONE 3 MG TABLET PO SCH (20:52)
[2022-05-24] MEDS: OLANZapine 10 MG RAPDIS TABLET PO SCH (20:56)
[2022-05-24] MEDS: HydrOXYzine PAMOATE 50 MG CAPSULE PO SCH (20:56)
[2022-05-25] MEDS: PROMETHAZINE HCL 25 MG TABLET PO PRN (06:31)
[2022-05-25] MEDS: FOLIC ACID 1 MG TABLET PO SCH (08:44)
[2022-05-25] MEDS: MULTIVITAMINS WITH MINERALS, THERAPEUTIC TABLET PO SCH (08:44)
[2022-05-25] MEDS: OMEGA-3/DHA/EPA/FISH OIL 1,000 MG CAPSULE PO SCH (08:44)
[2022-05-25] MEDS: NALTREXONE HCL 50 MG TABLET PO SCH (08:44)
[2022-05-25] MEDS: THIAMINE 100 MG TABLET PO SCH ×2 (08:45→16:41)
[2022-05-25] MEDS: BuPROPion HCL 75 MG TABLET PO SCH (08:45)
[2022-05-25] MEDS: LORazepam 2 MG TABLET PO PRN (08:54)
[2022-05-25 09:32] VITALS: BP 140/81
[2022-05-25 16:00] VITALS: BP 135/84
[2022-05-25] MEDS: ESTRADIOL 1 MG TABLET PO SCH (20:41)
[2022-05-25] MEDS: HydrOXYzine PAMOATE 50 MG CAPSULE PO SCH (20:41)
[2022-05-25] MEDS: OLANZapine 10 MG RAPDIS TABLET PO SCH (20:41)
[2022-05-25] MEDS: ESZOPICLONE 3 MG TABLET PO SCH (20:41)
[2022-05-25] MEDS: PRAZOSIN HCL 5 MG CAPSULE PO SCH (20:41)
[2022-05-25] MEDS: MELATONIN 5 MG TABLET PO SCH (20:42)
[2022-05-25] MEDS: FINASTERIDE 5 MG TABLET PO SCH (20:42)
[2022-05-25] MEDS: PROGESTERONE, MICRONIZED 100 MG CAPSULE PO SCH (20:42)
[2022-05-26] MEDS: LORazepam 2 MG TABLET PO PRN ×2 (03:21→11:45)
[2022-05-26 08:07] VITALS: BP 130/78
[2022-05-26] MEDS: MULTIVITAMINS WITH MINERALS, THERAPEUTIC TABLET PO SCH (08:52)
[2022-05-26] MEDS: THIAMINE 100 MG TABLET PO SCH ×2 (08:52→16:16)
[2022-05-26] MEDS: OMEGA-3/DHA/EPA/FISH OIL 1,000 MG CAPSULE PO SCH (08:52)
[2022-05-26] MEDS: NALTREXONE HCL 50 MG TABLET PO SCH (08:53)
[2022-05-26] MEDS: OLANZapine 5 MG RAPDIS TABLET PO SCH ×2 (08:53→21:06)
[2022-05-26] MEDS: FOLIC ACID 1 MG TABLET PO SCH (08:54)
[2022-05-26] MEDS ORDERED: BuPROPion HCL 100 MG TABLET PO SCH (09:00)
[2022-05-26 11:45] VITALS: BP 126/82
[2022-05-26 12:45] VITALS: BP 128/74
[2022-05-26 16:08] VITALS: BP 135/88
[2022-05-26] MEDS: ESZOPICLONE 3 MG TABLET PO SCH (21:04)
[2022-05-26] MEDS: HydrOXYzine PAMOATE 50 MG CAPSULE PO SCH (21:04)
[2022-05-26] MEDS: PRAZOSIN HCL 5 MG CAPSULE PO SCH (21:04)
[2022-05-26] MEDS: ESTRADIOL 1 MG TABLET PO SCH (21:04)
[2022-05-26] MEDS: PROGESTERONE, MICRONIZED 100 MG CAPSULE PO SCH (21:04)
[2022-05-26] MEDS: FINASTERIDE 5 MG TABLET PO SCH (21:04)
[2022-05-26] MEDS: MELATONIN 5 MG TABLET PO SCH (21:05)
[2022-05-27] MEDS: LORazepam 2 MG TABLET PO PRN (00:19)
[2022-05-27 07:50] VITALS: BP 110/76
[2022-05-27] MEDS: MULTIVITAMINS WITH MINERALS, THERAPEUTIC TABLET PO SCH (08:28)
[2022-05-27] MEDS: OMEGA-3/DHA/EPA/FISH OIL 1,000 MG CAPSULE PO SCH (08:29)
[2022-05-27] MEDS: OLANZapine 5 MG RAPDIS TABLET PO SCH ×2 (08:29→21:18)
[2022-05-27] MEDS: NALTREXONE HCL 50 MG TABLET PO SCH (08:29)
[2022-05-27] MEDS: BuPROPion HCL 75 MG TABLET PO SCH (08:29)
[2022-05-27] MEDS: FOLIC ACID 1 MG TABLET PO SCH (08:29)
[2022-05-27] MEDS: THIAMINE 100 MG TABLET PO SCH ×2 (08:30→16:45)
[2022-05-27 08:49] VITALS: BP 110/76
[2022-05-27] MEDS: ESZOPICLONE 3 MG TABLET PO SCH (21:20)
[2022-05-27] MEDS: PRAZOSIN HCL 5 MG CAPSULE PO SCH (21:20)
[2022-05-27] MEDS: FINASTERIDE 5 MG TABLET PO SCH (21:20)
[2022-05-27] MEDS: PROGESTERONE, MICRONIZED 100 MG CAPSULE PO SCH (21:20)
[2022-05-27] MEDS: HydrOXYzine PAMOATE 50 MG CAPSULE PO SCH (21:20)
[2022-05-27] MEDS: ESTRADIOL 1 MG TABLET PO SCH (21:21)
[2022-05-27] MEDS: MELATONIN 5 MG TABLET PO SCH (21:21)
[2022-05-28] MEDS: LORazepam 2 MG TABLET PO PRN ×2 (02:43→09:22)
[2022-05-28 02:44] VITALS: BP 107/71
[2022-05-28 08:02] LABS: COVID AG,FIA SOURCE NASAL SWAB
[2022-05-28] MEDS: FOLIC ACID 1 MG TABLET PO SCH (08:17)
[2022-05-28] MEDS: THIAMINE 100 MG TABLET PO SCH ×2 (08:17→18:07)
[2022-05-28] MEDS: MULTIVITAMINS WITH MINERALS, THERAPEUTIC TABLET PO SCH (08:17)
[2022-05-28] MEDS: OLANZapine 5 MG RAPDIS TABLET PO SCH ×2 (08:17→21:48)
[2022-05-28] MEDS: BuPROPion HCL 75 MG TABLET PO SCH (08:17)
[2022-05-28] MEDS: NALTREXONE HCL 50 MG TABLET PO SCH ×2 (08:18→09:00)
[2022-05-28] MEDS: OMEGA-3/DHA/EPA/FISH OIL 1,000 MG CAPSULE PO SCH (08:18)
[2022-05-28 08:35] VITALS: BP 151/76
[2022-05-28 16:00] VITALS: BP 114/72
[2022-05-28 20:12] VITALS: BP 132/94
[2022-05-28] MEDS: ESTRADIOL 1 MG TABLET PO SCH (21:47)
[2022-05-28] MEDS: HydrOXYzine PAMOATE 50 MG CAPSULE PO SCH (21:47)
[2022-05-28] MEDS: MELATONIN 5 MG TABLET PO SCH (21:49)
[2022-05-28] MEDS: FINASTERIDE 5 MG TABLET PO SCH (21:49)
[2022-05-28] MEDS: PRAZOSIN HCL 5 MG CAPSULE PO SCH (21:49)
[2022-05-28] MEDS: ESZOPICLONE 3 MG TABLET PO SCH (21:49)
[2022-05-28] MEDS: PROGESTERONE, MICRONIZED 100 MG CAPSULE PO SCH (21:49)
[2022-05-29 08:02] VITALS: BP 136/85
[2022-05-29] MEDS: NALTREXONE HCL 50 MG TABLET PO SCH (08:12)
[2022-05-29] MEDS: BuPROPion HCL 75 MG TABLET PO SCH (08:13)
[2022-05-29] MEDS: THIAMINE 100 MG TABLET PO SCH ×2 (08:15→17:05)
[2022-05-29] MEDS: FOLIC ACID 1 MG TABLET PO SCH (08:16)
[2022-05-29] MEDS: OLANZapine 5 MG RAPDIS TABLET PO SCH ×2 (08:16→20:54)
[2022-05-29] MEDS: MULTIVITAMINS WITH MINERALS, THERAPEUTIC TABLET PO SCH (08:16)
[2022-05-29] MEDS: OMEGA-3/DHA/EPA/FISH OIL 1,000 MG CAPSULE PO SCH (08:17)
[2022-05-29] MEDS: BACITRACIN 28 GM OINTMENT TP PRN (10:12)
[2022-05-29] MEDS ORDERED: PRAZ5 PO (16:38)
[2022-05-29] MEDS ORDERED: NALT50TA PO (16:38)
[2022-05-29] MEDS ORDERED: OLAN5TAB94 PO ×2 (16:38)
[2022-05-29] MEDS ORDERED: BUPR-344 PO (16:38)
[2022-05-29] MEDS ORDERED: MELA5TAB40 PO (16:38)
[2022-05-29] MEDS ORDERED: OMEG-135 PO (16:38)
[2022-05-29] MEDS ORDERED: ESZO3 PO (16:38)
[2022-05-29] MEDS ORDERED: HYDR50CA7 PO (16:38)
[2022-05-29 18:04] VITALS: BP 145/97
[2022-05-29] MEDS: OLANZapine 5 MG RAPDIS TABLET PO PRN (18:34)
[2022-05-29] MEDS: LORazepam 2 MG TABLET PO PRN (18:34)
[2022-05-29] MEDS: ESZOPICLONE 3 MG TABLET PO SCH (20:53)
[2022-05-29] MEDS: ESTRADIOL 1 MG TABLET PO SCH (20:54)
[2022-05-29] MEDS: PROGESTERONE, MICRONIZED 100 MG CAPSULE PO SCH (20:54)
[2022-05-29] MEDS: PRAZOSIN HCL 5 MG CAPSULE PO SCH (20:54)
[2022-05-29] MEDS: HydrOXYzine PAMOATE 50 MG CAPSULE PO SCH (20:54)
[2022-05-29] MEDS: FINASTERIDE 5 MG TABLET PO SCH (20:55)
[2022-05-29] MEDS: MELATONIN 5 MG TABLET PO SCH (20:55)
[2022-05-30] MEDS: OMEGA-3/DHA/EPA/FISH OIL 1,000 MG CAPSULE PO SCH (08:07)
[2022-05-30] MEDS: THIAMINE 100 MG TABLET PO SCH (08:07)
[2022-05-30] MEDS: FOLIC ACID 1 MG TABLET PO SCH (08:07)
[2022-05-30] MEDS: MULTIVITAMINS WITH MINERALS, THERAPEUTIC TABLET PO SCH (08:07)
[2022-05-30] MEDS: BuPROPion HCL 75 MG TABLET PO SCH (08:08)
[2022-05-30] MEDS: NALTREXONE HCL 50 MG TABLET PO SCH (08:08)
[2022-05-30] MEDS: OLANZapine 5 MG RAPDIS TABLET PO SCH (08:09)
[2022-05-30 08:36] VITALS: BP 121/74
[2022-05-30] MEDS ORDERED: PROG100C24 PO (11:46)
[2022-05-30] MEDS ORDERED: FINA-27 PO (11:46)
[2022-05-30] MEDS ORDERED: ESTR-95 PO (11:46)
== END 2022-05-30 12:45 | disposition home or self-care (01) | DRG 885 ==
LOC: EMS 13:59 → UNDOADMIN 21:16 → B3A 21:16 → 3EC 21:16 → B3A 23:25
PROVIDERS: ADMIT Psychiatry & Neurology Psychiatry; ATTEND Psychiatry & Neurology Psychiatry
DX: F33.2 Major depressive disorder, recurrent severe without psychotic features (principal); L03.116 Cellulitis of left lower limb; S81.812A Laceration without foreign body, left lower leg, initial encounter; X78.8XXA Intentional self-harm by other sharp object, initial encounter; K21.9 Gastro-esophageal reflux disease without esophagitis; F43.10 Post-traumatic stress disorder, unspecified; F90.9 Attention-deficit hyperactivity disorder, unspecified type; D64.9 Anemia, unspecified; I10 Essential (primary) hypertension; J44.9 Chronic obstructive pulmonary disease, unspecified; Y93.89 Activity, other specified; Y92.89 Other specified places as the place of occurrence of the external cause; Y99.8 Other external cause status
CPT/HCPCS: 80053; 84703; 85025; 87081; 99285; G0480; Q9967

== ENCOUNTER 2024-09-13 13:44 | Inpatient (IN) | payer MEDICARE, MEDICAID ==
[~2024-09-13] VITALS: Ht 165.1 cm; Wt 74.6 kg
[~2024-09-13 13:44] MED LIST changes: +ESTR-95 PO; -ESZO3 PO; +ESZO3TAB53 PO; -MELA5TAB40 PO; -NALT50TA PO; -OLAN7.5T22 PO; -PRAZ1 PO; +QUET300T2 PO
[2024-09-13] MEDS: HALOPERIDOL LACTATE 5 MG/ML VIAL IM ONE (15:20)
[2024-09-13] MEDS: LORazepam 2 MG/ML VIAL IM ONE (15:20)
[2024-09-13] MEDS: DiphenhydrAMINE HCL 50 MG/ML VIAL IM ONE (15:21)
[2024-09-13] MEDS ORDERED: haloperidoL 5 MG TABLET PO PRN (15:45)
[2024-09-13] MEDS ORDERED: CLON-595 PO (17:53)
[2024-09-13] MEDS ORDERED: HYDR50CA7 PO (17:53)
[2024-09-13 22:16] LABS: BASOPHILS % (AUTO) 0.8 % (0.0-2.0); EOSINOPHILS % (AUTO) 1.1 % (1.0-6.0); HEMATOCRIT 38.7 % (36-46); HEMOGLOBIN 13.1 g/dL (12.0-16.0); LYMPHOCYTES # (AUTO) 3.1 K/uL (1.0-4.8); LYMPHOCYTES % (AUTO) 33.3 % (22.0-44.0); MEAN CORPUSCULAR HEMOGLOBIN 30.2 pg (26.0-34.0); MEAN CORPUSCULAR HGB CONC 33.9 G/dL (31.0-37.0); MEAN CORPUSCULAR VOLUME 89 fL (80-100); MONOCYTES # (AUTO) 0.7 K/uL (0.1-1.0); NEUTROPHILS # (AUTO) 5.3 K/uL (1.8-7.7); NEUTROPHILS % (AUTO) 56.8 % (40.0-70.0); PLATELET COUNT (AUTO) 295 K/uL (150-450); RED BLOOD CELL COUNT(AUTO) 4.34 MIL/uL (4.00-5.20); RED CELL DISTRIBUTION WIDTH 14.2 % (11.5-14.5); WHITE BLOOD COUNT (AUTO) 9.3 K/uL (4.5-11.0)
[2024-09-13 22:24] LABS: ANION GAP 5 mmol/L (8-16); CALCIUM, TOTAL 8.7 mg/dL (8.8-10.5); CARBON DIOXIDE 31 mmol/L (22-29); CHLORIDE 104 mmol/L (98-107); GLOMERULAR FILTR. RATE CALC > 60 mL/min (>60); GLUCOSE,RANDOM 93 mg/dL (70-110); POTASSIUM 4.5 mmol/L (3.5-5.1); SODIUM SERUM 139 mmol/L (136-145); UREA NITROGEN, BLOOD 14 mg/dL (7-18)
[2024-09-13 22:55] LABS: COVID AG,FIA SOURCE NASAL SWAB
[2024-09-13 23:14] LABS: SARS-COV2 (COVID) ANTIGEN,FIA Negative (Negative)
[2024-09-14] MEDS: MAGNESIUM OXIDE 400 MG TABLET PO ONE (02:05)
[2024-09-14] MEDS: MIRTAZAPINE 15 MG TABLET PO ONE (02:05)
[2024-09-14] MEDS: HydrOXYzine HCL 50 MG TABLET PO ONE (02:05)
[2024-09-14] MEDS: QUEtiapine FUMARATE 100 MG TABLET PO ONE (02:05)
[2024-09-14] MEDS: GABAPENTIN 400 MG CAPSULE PO ONE (02:05)
[2024-09-14] MEDS: ZOLPIDEM TARTRATE 10 MG TABLET PO PRN (02:09)
[2024-09-14 05:15] LABS: HEMOGLOBIN A1C 5.2 % (3.8-5.6)
[2024-09-14 05:16] LABS: CHOL/HDL RATIO 3.4 (3.9-5.7)
[2024-09-14 09:29] VITALS: O2SAT 99
[2024-09-14] MEDS: LORazepam 2 MG TABLET PO PRN (10:01)
[2024-09-14] MEDS ORDERED: LISD40TA2 PO (10:27)
[2024-09-14] MEDS ORDERED: PROG100C24 PO (10:27)
[2024-09-14] MEDS ORDERED: QUET50TA24 PO (10:27)
[2024-09-14] MEDS ORDERED: MAGN500T4 PO (10:27)
[2024-09-14] MEDS ORDERED: PRAZ2 PO (10:27)
[2024-09-14] MEDS ORDERED: GABA-1554 PO (10:27)
[2024-09-14] MEDS ORDERED: [UNRECOGNIZED DRUG - CODE] (10:27)
[2024-09-14] MEDS ORDERED: QUET200T30 PO (10:27)
[2024-09-14] MEDS ORDERED: [UNRECOGNIZED DRUG - CODE] (10:27)
[2024-09-14] MEDS ORDERED: MIRT-92 PO (10:27)
[2024-09-14] MEDS ORDERED: ESTR2TAB25 PO (10:27)
[2024-09-14] MEDS ORDERED: HYDR50CA6 PO (10:27)
[2024-09-14] MEDS ORDERED: LEMB10TA PO (10:27)
[2024-09-14] MEDS: LORazepam 2 MG/ML VIAL IM ONE (10:42)
[2024-09-14] MEDS: DiphenhydrAMINE HCL 50 MG/ML VIAL IM ONE (10:43)
[2024-09-14] MEDS: HALOPERIDOL LACTATE 5 MG/ML VIAL IM ONE (10:43)
[2024-09-14 13:39] VITALS: BP 127/97; PULSE 96; RESP 18; TEMP 97.9; O2SAT 96
[2024-09-14] MEDS: PRAZOSIN HCL 2 MG CAPSULE PO SCH (21:01)
[2024-09-14] MEDS: QUEtiapine FUMARATE 200 MG TABLET PO SCH (21:01)
[2024-09-14] MEDS: MIRTAZAPINE 15 MG TABLET PO SCH (21:01)
[2024-09-14 21:31] VITALS: RESP 18; TEMP 98.3
[2024-09-15] MEDS: ZINC OXIDE 16% PASTE 57 GM TUBE TP PRN (08:33)
[2024-09-15] MEDS: HydrOXYzine PAMOATE 50 MG CAPSULE PO PRN (09:02)
[2024-09-15] MEDS: estradioL 1 MG TABLET PO SCH (12:18)
[2024-09-15 16:12] VITALS: BP 136/86; PULSE 75; RESP 16; TEMP 97.1; O2SAT 99
[2024-09-15] MEDS: GABAPENTIN 400 MG CAPSULE PO SCH (16:14)
[2024-09-15] MEDS: QUEtiapine FUMARATE 100 MG TABLET PO SCH (16:14)
[2024-09-15 20:54] VITALS: BP 130/80; PULSE 80; RESP 18; TEMP 97.5; O2SAT 99
[2024-09-16 10:31] VITALS: BP 134/92; PULSE 90; RESP 18; TEMP 97.2; O2SAT 97
[2024-09-16] MEDS ORDERED: QUET100T PO (14:23)
== END 2024-09-16 16:00 | disposition home or self-care (01) | DRG 885 ==
LOC: EMS 13:45 → 3EC 09-14 13:18
PROVIDERS: ADMIT Psychiatry & Neurology Child & Adolescent Psychiatry; ATTEND Psychiatry & Neurology Child & Adolescent Psychiatry
PROC: GZ56ZZZ Individual Psychotherapy, Supportive (ICD-10-PCS; principal; 2024-09-14)
PROC: GZ52ZZZ Individual Psychotherapy, Cognitive (ICD-10-PCS; 2024-09-14)
DX: F33.2 Major depressive disorder, recurrent severe without psychotic features (principal); R45.851 Suicidal ideations; Z20.822 Contact with and (suspected) exposure to COVID-19; F41.9 Anxiety disorder, unspecified; F43.10 Post-traumatic stress disorder, unspecified; R06.4 Hyperventilation; F84.0 Autistic disorder; F60.3 Borderline personality disorder; G47.00 Insomnia, unspecified; K21.9 Gastro-esophageal reflux disease without esophagitis; F90.9 Attention-deficit hyperactivity disorder, unspecified type; F12.90 Cannabis use, unspecified, uncomplicated; Z79.899 Other long term (current) drug therapy
CPT/HCPCS: 80048; 80061; 83036; 85025; 99285; G0480; J1200; J1630; J2060